=== PATIENT | female | born 1975 | race Asian ===

== ENCOUNTER 2024-05-18 11:20 | Day surgery (SDC) | payer BC, OTHER ==
[2024-05-14 12:22] VITALS: BMI 28.3
[2024-05-18 11:37] VITALS: RESP 16
[2024-05-18 12:58] VITALS: TEMP 98.7
[2024-05-18 13:14] VITALS: BP 102/55; PULSE 69
== END 2024-05-18 13:51 | disposition home or self-care (01) ==
LOC: FASU-ENDO 11:20
PROVIDERS: ATTEND Internal Medicine Gastroenterology
PROC: 0DB68ZX Excision of Stomach, Via Natural or Artificial Opening Endoscopic, Diagnostic (ICD-10-PCS; 2024-05-18)
PROC: 0DB48ZX Excision of Esophagogastric Junction, Via Natural or Artificial Opening Endoscopic, Diagnostic (ICD-10-PCS; 2024-05-18)
PROC: 0DB98ZX Excision of Duodenum, Via Natural or Artificial Opening Endoscopic, Diagnostic (ICD-10-PCS; principal; 2024-05-18 12:44)
DX: K29.50 Unspecified chronic gastritis without bleeding (principal); K21.00 Gastro-esophageal reflux disease with esophagitis, without bleeding; R10.13 Epigastric pain
CPT/HCPCS: 81025; 88305-TC; 88342-TC